=== PATIENT | female | born 1985 | race Caucasian/White ===

== ENCOUNTER → 2017-08-08 | Outpatient (CLI) | payer OTHER ==
[~2017-08-08] MED LIST: AMOX500 PO; BCP; CRUTCH4 USE; DIPH50 PO; HYDACE5 PO; IBUP600 PO; MEDR150I IM; META800 PO; METO10 PO; NAPR375 PO; NAPR500 PO; ONDA8 PO; OXYACE5T PO; PCN; PREN-16 PO; PROM25 PO; RXHYDACE PO; RXONDA4ODT MM; RXOXYACE PO; RXPROM25 PO; SERT25 PO; TRAZ50 PO
[2017-08-08 17:33] LABS: Source, Urine Catheter
[2017-08-08 17:43] LABS: Appearance, Urine Hazy (Clear); Bilirubin, Urine Neg (Neg); Blood, Urine 2+ (Neg); Color, Urine Yellow (P-Yellow); Glucose Qualitative, Urine Neg (Neg); Ketones, Urine Neg (Neg); Leukocyte Esterase, Urine 1+ (Neg); Nitrite, Urine Pos (Neg); Protein, Urine 1+ (Neg); Specific Gravity, Urine 1.015 (1.003-1.022); Urobilinogen, Urine NORM (Normal); pH, Urine 6.5 (5.0-8.0)
[2017-08-08 17:54] LABS: White Blood Cells, Urine 50-100 /hpf (0-5)
[2017-08-08 17:55] LABS: Bacteria Many /hpf; Squamous Epithelial Cells Few /hpf (Few); Transitional Epithelial Cells Few /hpf ([, 0-Rare])
== END ==
LOC: LAB SHORT 16:07 → OLS 16:07
PROVIDERS: Nurse Practitioner Women's Health
DX: N89.8 Other specified noninflammatory disorders of vagina (principal); R30.0 Dysuria
CPT/HCPCS: 81001; 87070; 87077; 87086; 87186; 87205

== ENCOUNTER → 2018-03-11 | Outpatient (CLI) | payer SELFPAY ==
[~2018-03-11] MED LIST changes: +AMOX250 PO; +HYDHCL25 PO; +HYDR1TAB94 PO; +ONDA4ODT
[2018-03-11 15:56] LABS: Source, Urine Voided
[2018-03-11 16:50] LABS: Appearance, Urine Cloudy (Clear); Bilirubin, Urine Neg (Neg); Blood, Urine 2+ (Neg); Color, Urine Yellow (P-Yellow); Glucose Qualitative, Urine Neg (Neg); Ketones, Urine 1+ (Neg); Leukocyte Esterase, Urine 1+ (Neg); Nitrite, Urine Pos (Neg); Protein, Urine 1+ (Neg); Urobilinogen, Urine NORM (Normal); pH, Urine 6.5 (5.0-8.0)
[2018-03-11 17:17] LABS: Bacteria Many /hpf; Squamous Epithelial Cells Few /hpf (Few)
== END | disposition home or self-care (01) ==
LOC: LAB 15:52 → LAB SHORT 15:52
PROVIDERS: Nurse Practitioner Women's Health
DX: R30.0 Dysuria (principal)
CPT/HCPCS: 81001; 87077; 87086; 87186

== ENCOUNTER → 2018-06-12 | Outpatient (CLI) | payer SELFPAY ==
[2018-06-12 18:30] LABS: Source, Urine Catheter
[2018-06-12 19:04] LABS: Bilirubin, Urine Neg (Neg); Blood, Urine Neg (Neg); Glucose Qualitative, Urine Neg (Neg); Ketones, Urine Neg (Neg); Leukocyte Esterase, Urine Neg (Neg); Nitrite, Urine Neg (Neg); Protein, Urine Neg (Neg); Urobilinogen, Urine NORM (Normal)
[2018-06-12 19:30] LABS: Appearance, Urine Clear (Clear); Color, Urine Yellow (P-Yellow)
== END | disposition home or self-care (01) ==
LOC: LAB 18:27 → LAB SHORT 18:27
PROVIDERS: Nurse Practitioner Women's Health
DX: N89.8 Other specified noninflammatory disorders of vagina (principal); R30.0 Dysuria
CPT/HCPCS: 81003

== ENCOUNTER → 2018-08-13 | Outpatient (CLI) | payer BC ==
[2018-08-13 11:14] LABS: Source, Urine Clean Catch
[2018-08-13 12:52] LABS: Bilirubin, Urine Neg (Neg); Blood, Urine 1+ (Neg); Glucose Qualitative, Urine Neg (Neg); Ketones, Urine Neg (Neg); Leukocyte Esterase, Urine 1+ (Neg); Nitrite, Urine Pos (Neg); Protein, Urine 1+ (Neg); Specific Gravity, Urine 1.015 (1.003-1.022); Urobilinogen, Urine NORM (Normal)
[2018-08-13 13:07] LABS: Appearance, Urine Hazy (Clear); Color, Urine Yellow (P-Yellow)
[2018-08-13 13:08] LABS: Bacteria Many /hpf; Red Blood Cells, Urine 0-2 /hpf (0-2); Squamous Epithelial Cells Few /hpf (Few)
== END | disposition home or self-care (01) ==
LOC: LAB SHORT 11:05 → LAB 11:05
PROVIDERS: Nurse Practitioner Women's Health
DX: R30.0 Dysuria (principal)
CPT/HCPCS: 81001; 87077; 87086; 87186

== ENCOUNTER → 2018-08-28 | Outpatient (CLI) | payer OTHER, BC ==
[2018-08-28 18:06] LABS: Source, Urine Catheter
[2018-08-28 18:20] LABS: Bilirubin, Urine Neg (Neg); Blood, Urine 1+ (Neg); Glucose Qualitative, Urine Neg (Neg); Ketones, Urine Neg (Neg); Leukocyte Esterase, Urine Neg (Neg); Nitrite, Urine Neg (Neg); Protein, Urine Neg (Neg); Urobilinogen, Urine NORM (Normal)
[2018-08-28 18:26] LABS: Appearance, Urine Hazy (Clear); Color, Urine Yellow (P-Yellow)
[2018-08-28 18:27] LABS: Mucus Light (0-Heavy); Squamous Epithelial Cells Many /hpf (Few)
[2018-08-28 18:28] LABS: White Blood Cells, Urine 0-2 /hpf (0-5)
[2018-08-28 18:29] LABS: Amorphous Light (0-Heavy); Bacteria Few /hpf; Red Blood Cells, Urine 0-2 /hpf (0-2)
== END | disposition home or self-care (01) ==
LOC: LAB 18:05 → LAB SHORT 18:05
PROVIDERS: Nurse Practitioner Women's Health
DX: N39.0 Urinary tract infection, site not specified (principal); N89.8 Other specified noninflammatory disorders of vagina
CPT/HCPCS: 81001; 87070; 87205

== ENCOUNTER → 2018-11-14 | Outpatient (CLI) | payer OTHER, BC | END | disposition home or self-care (01) | LOC: LAB EV 18:28 → LAB SHORT 18:28 | PROVIDERS: Family Medicine | DX: J02.9 Acute pharyngitis, unspecified (principal) | CPT/HCPCS: 87491; 87591 ==

== ENCOUNTER 2019-07-31 21:36 | Emergency (ER) | payer OTHER ==
[~2019-07-31] VITALS: Ht 165.1 cm; Wt 68.0 kg
[2019-07-31] MEDS ORDERED: CYCL10 PO (22:15)
== END 2019-07-31 23:05 | disposition home or self-care (01) ==
LOC: ER 21:36
DX: S92.354A Nondisplaced fracture of fifth metatarsal bone, right foot, initial encounter for closed fracture (principal); X50.1XXA Overexertion from prolonged static or awkward postures, initial encounter
CPT/HCPCS: 29505; 73630; 99283-25; A9270

== ENCOUNTER 2020-07-19 06:10 | Emergency (ER) | payer BC, OTHER ==
[~2020-07-19] VITALS: Ht 167.6 cm; Wt 68.0 kg
[~2020-07-19 06:10] MED LIST changes: +CYCL10 PO
== END 2020-07-19 07:45 | disposition home or self-care (01) ==
LOC: ER 06:10
DX: U07.1 COVID-19 (principal)
CPT/HCPCS: 87430; 99283

== ENCOUNTER → 2021-02-01 | Outpatient (CLI) | payer OTHER ==
[2021-02-01 20:05] LABS: C-REACTIVE PROTEIN, EXT RANGE <0.290 mg/dL (0.000-0.300)
[2021-02-01 20:10] LABS: Anion Gap 6 mmol/L (6-16); Blood Urea Nitrogen 11 mg/dL (8-24); Bun/Creatinine Ratio 14.9 (12.0-20.0); CO2, Blood 25 mmol/L (21-32); Calcium, Blood 8.8 mg/dL (8.5-10.1); Chloride, Blood 108 mmol/L (98-108); Creatinine, Blood 0.74 mg/dL (0.40-1.00); Glomerular Filtration Rate >60 (60-); Glucose, Blood 95 mg/dL (70-99); Potassium, Blood 3.5 mmol/L (3.5-5.5); Sodium, Blood 139 mmol/L (136-145); Troponin I <0.015 ng/mL (0.000-0.040)
== END ==
LOC: LAB SHORT 19:07 → LAB 19:07
PROVIDERS: Nurse Practitioner
DX: R07.9 Chest pain, unspecified (principal); E55.9 Vitamin D deficiency, unspecified
CPT/HCPCS: 80048; 82306; 84484; 86140

== ENCOUNTER 2023-04-11 20:36 | Emergency (ER) | payer OTHER ==
[~2023-04-11] VITALS: Ht 167.6 cm; Wt 71.7 kg
[2023-04-11 21:06] LABS: BASOPHILS ABSOLUTE AUTO 0.04 K/mm3 (0.00-0.23); BASOPHILS PERCENT AUTO 0 % (0-2); EOSINOPHILS ABSOLUTE AUTO 0.11 K/mm3 (0.00-0.68); EOSINOPHILS PERCENT AUTO 1 % (0-6); Hematocrit 38.9 % (33.0-51.0); Hemoglobin 13.3 g/dL (11.5-16.0); IMMATURE GRAN ABSOLUTE AUTO 0.03 K/mm3 (0.00-0.10); IMMATURE GRAN PERCENT AUTO 0 % (0-1); LYMPHOCYTES ABSOLUTE AUTO 3.76 K/mm3 (0.84-5.20); LYMPHOCYTES PERCENT AUTO 28 % (21-46); MONOCYTES ABSOLUTE AUTO 0.94 K/mm3 (0.16-1.47); MONOCYTES PERCENT AUTO 7 % (4-13); Mean Corpuscular HGB 27.9 pg (26.0-34.0); Mean Corpuscular HGB Conc 34.2 g/dL (31.5-36.5); Mean Corpuscular Volume 82 fL (80-100); Mean Platelet Volume 10.9 fL (9.1-12.4); NEUTROPHILS ABSOLUTE AUTO 8.48 K/mm3 (1.96-9.15); NEUTROPHILS PERCENT AUTO 64 % (41-73); Platelet Count 253 K/mm3 (150-400); RDW Standard Deviation 38.8 fL (35.1-46.3); Red Blood Cell Count 4.77 M/mm3 (3.80-5.20); White Blood Cell Count 13.36 K/mm3 (4.00-11.30)
[2023-04-11 21:26] LABS: Albumin, Blood 4.1 g/dL (3.4-5.0); Albumin/Globulin Ratio 1.5 (0.8-1.8); Bilirubin, Total 0.2 mg/dL (0.1-1.0); Bun/Creatinine Ratio 19.6 (12.0-20.0); Calcium, Blood 8.2 mg/dL (8.5-10.1); Creatinine, Blood 0.72 mg/dL (0.40-1.00); Globulin, Blood 2.8 g/dL (2.2-4.0); Potassium, Blood 3.9 mmol/L (3.5-5.5); Total Protein, Blood 6.9 g/dL (6.4-8.2)
[2023-04-11 22:11] LABS: Influenza A, PCR NEGATIVE (NEGATIVE); Influenza B, PCR NEGATIVE (NEGATIVE); Resp Syncytial Virus, PCR NEGATIVE (NEGATIVE); SARS-Cov-2 (COVID-19) PCR, MMC NEGATIVE (NEGATIVE)
[2023-04-11] MEDS ORDERED: ALPR.5 PO (22:52)
[2023-04-11] MEDS ORDERED: Metoclopramide HCl 5MG / ML 2ML Vial IV ONE (23:25)
[2023-04-11] MEDS ORDERED: NS 1,000 ML IV SCH (23:25)
[2023-04-11] MEDS ORDERED: Ketorolac Tromethamine 30mg Vial IV ONE (23:25)
[2023-04-11] MEDS ORDERED: DiphenhydrAMINE HCl 50 MG/ML 1ML Vial IV ONE (23:25)
[2023-04-12] MEDS ORDERED: Metoclopramide HCl 5MG / ML 2ML Vial IV ONE (00:05)
[2023-04-12 00:30] VITALS: BP 122/96
== END 2023-04-12 00:36 | disposition home or self-care (01) ==
LOC: ER 20:36
PROVIDERS: Physician Assistant
DX: R51.9 Headache, unspecified (principal); F41.9 Anxiety disorder, unspecified; Z11.52 Encounter for screening for COVID-19; Z79.899 Other long term (current) drug therapy
CPT/HCPCS: 0241U; 71046; 80053; 84484; 85025; 85379; 93005; 93010; 96361; 96374; 96375; 99284-25; J1200; J1885; J2765; J7030

== ENCOUNTER → 2024-02-29 | Outpatient (CLI) | payer OTHER ==
[~2024-02-29] MED LIST changes: +ALPR.5 PO
== END ==
LOC: LAB 16:40 → LAB SHORT 16:40
DX: R30.0 Dysuria (principal); R35.89 Other polyuria
CPT/HCPCS: 87086

== ENCOUNTER → 2025-02-04 | Outpatient (CLI) | payer BC, OTHER ==
[2025-02-04 20:12] LABS: Candida Group, PCR NOT DETECTED (NOT DETECT); Candida glabrata-krusei, PCR NOT DETECTED (NOT DETECT)
[2025-02-04 20:13] LABS: Bacterial Vaginosis PCR Positive (NEGATIVE)
[2025-02-04 20:45] LABS: Chlamydia Trachomatis Vaginal NOT DETECTED (NOT DETECT); Neisseria Gonorrhoea Vaginal NOT DETECTED (NOT DETECT)
== END | disposition home or self-care (01) ==
LOC: LAB 18:04 → LAB SHORT 18:04
PROVIDERS: Physician Assistant
DX: R35.0 Frequency of micturition (principal)
CPT/HCPCS: 81515; 87491; 87591

== ENCOUNTER → 2025-03-03 | Outpatient (CLI) | payer BC, OTHER ==
[2025-03-04 10:06] LABS: Bacterial Vaginosis PCR Negative (NEGATIVE); Candida glabrata-krusei, PCR NOT DETECTED (NOT DETECT)
[2025-03-04 10:36] LABS: Candida Group, PCR DETECTED (NOT DETECT); Chlamydia Trachomatis Urine NOT DETECTED (NOT DETECT); Neisseria Gonorrhoea Urine NOT DETECTED (NOT DETECT)
[2025-03-05 16:22] LABS: HIV 1,2 COMBO ANTIGEN/ANTIBODY Negative (Negative)
[2025-03-05 17:01] LABS: HEPATITIS C AB CIA INTERP Negative (Negative); HEPATITIS C ANTIBODY CIA INDEX 0.02 IV
== END | disposition home or self-care (01) ==
LOC: LAB SHORT 16:50
PROVIDERS: Family Medicine
DX: Z11.4 Encounter for screening for human immunodeficiency virus [HIV] (principal); Z11.3 Encounter for screening for infections with a predominantly sexual mode of transmission; Z11.59 Encounter for screening for other viral diseases; N89.8 Other specified noninflammatory disorders of vagina; R30.0 Dysuria
CPT/HCPCS: 81515; 86592; 86803; 87086; 87147; 87389; 87491; 87591